=== PATIENT | male | born 1960 | race Caucasian/White ===

== ENCOUNTER 2016-07-11 15:16 | Inpatient (IN) | payer OTHER ==
[~2016-07-11] VITALS: Ht 188 cm; Wt 101.0 kg
[2016-07-11] MEDS ORDERED: ASPIRIN 81 MG TAB PO STA (15:36)
[2016-07-11] MEDS ORDERED: NITROGLYCERIN 2% 1 GM OINT PKT TD STA (15:36)
[2016-07-11 15:58] LABS: ADD SCAN DIFF NO
[2016-07-11 15:59] LABS: BASOPHILS % 0.3 % (0.0-2.0); EOSINOPHILS # 0.1 10^3/ul (0.0-0.5); HEMOGLOBIN 14.9 g/dl (14.0-18.0); LYMPHOCYTES # 2.6 10^3/ul (0.8-2.9); LYMPHOCYTES % 26.5 % (15.0-51.0); MEAN CORPUSCULAR HEMOGLOBIN 29.9 pg (29.0-33.0); MEAN CORPUSCULAR HGB CONC 34.7 g/dl (32.0-37.0); MEAN CORPUSCULAR VOLUME 86.2 fl (82.0-101.0); MEAN PLATELET VOLUME 10.2 fl (7.4-10.4); MONOCYTE # 0.5 10^3/ul (0.3-0.9); MONOCYTES % 5.3 % (0.0-11.0); NEUTROPHIL # 6.6 10^3/ul (1.6-7.5); NEUTROPHILS % 66.6 % (39.0-77.0); PLATELET COUNT 209 10^3/UL (140-415); RED BLOOD COUNT 4.99 10^6/ul (4.70-6.10); RED CELL DISTRIBUTION WIDTH 13.2 % (11.5-14.5)
[2016-07-11] MEDS ORDERED: NITROGLYCERIN (SL) 0.4 MG TAB SL PRN (16:00)
--- NOTE | 2016-07-11 16:00 | RADRPT ---
PROCEDURE: XR Chest. CLINICAL INDICATION: chest pain TECHNIQUE: Single frontal view of the chest was obtained COMPARISON: None FINDINGS: The heart and mediastinum are within normal limits. There is an azygos lobe fissure. There is mild right upper lobe scarring. The lungs are otherwise clear. There is no pleural effusion or pneumothorax. RPTAT: AA IMPRESSION: No acute disease. Mild linear scarring in the right upper lobe. .Jair Moreira MD, MD Date Time Electronically viewed and signed by .Jair Moreira MD, on 07/11/2016 16:00 .S/
[2016-07-11 16:15] LABS: CHLORIDE 109 mmol/L (97-110); POTASSIUM 4.4 mmol/L (3.5-5.1); SODIUM 144 mmol/L (135-144)
[2016-07-11 16:17] LABS: INR 0.95; PROTIME 12.7 Sec (12.2-14.2)
[2016-07-11 16:18] LABS: ANION GAP 12 (8-16); BLOOD UREA NITROGEN 13 mg/dl (7-20); CARBON DIOXIDE 27 mmol/L (21-31); CREATININE 0.75 mg/dl (0.61-1.24); GLUCOSE 101 mg/dl (70-220); PARTIAL THROMBOPLASTIN TIME 27.3 Sec (25.0-35.0)
[2016-07-11 16:19] LABS: CALCIUM 9.5 mg/dl (8.4-10.2)
[2016-07-11 16:33] LABS: TROPONIN-I < 0.012 ng/ml (0.00-0.12)
[2016-07-11] MEDS ORDERED: ONDANSETRON 4 MG INJ IV PRN ×2 (18:00→19:30)
[2016-07-11] MEDS ORDERED: ACETAMINOPHEN 325 MG TAB PO PRN ×2 (18:00→19:30)
--- NOTE | 2016-07-11 19:05 | ERA ---
ER Documentation Chief Complaint Date/Time DATE: 07/11/16 TIME: 19:03 Chief Complaint CHEST PAIN STARTED LAST WEEK, TODAY INCREASINGLY WORSE RADIATES TO LEFT ARM HPI Patient is a 48-year-old male with osteoarthritis who presents with left arm and chest pain. The patient says that he had left arm pain for the past 3 weeks that has been worsening. He became concerned because he started with numbness the left arm and chest pain yesterday. The pain is been constant. He tried naproxen and gabapentin were prescribed by his doctor but these have not helped. Upon review of old medical records this is the patient's first visit to the emergency department. He says that his primary doctor is Dr. Marroquin. ROS All systems reviewed and are negative except as per history of present illness. Allergies Allergies: Coded Allergies: No Known Allergy (Unverified , 07/11/16) PMhx/Soc History of Surgery: No Anesthesia Reaction: No Hx Neurological Disorder: No Hx Respiratory Disorders: No Hx Cardiac Disorders: Yes (HYPERLIPIDS) Hx Psychiatric Problems: No Hx Miscellaneous Medical Probl: Yes (BPH, OA) Hx Alcohol Use: No Hx Substance Use: No Hx Tobacco Use: Yes Smoking Status: Former smoker FmHx Family History: No coronary disease Physical Exam Vitals Vital Signs Date Time Temp Pulse Resp B/P Pulse Ox O2 Delivery O2 Flow Rate FiO2 07/11/16 17:20 73 12 138/98 96 Room Air 07/11/16 15:23 98.3 82 17 164/95 95 Physical Exam Const: No acute distress Head: Atraumatic Eyes: Normal Conjunctiva ENT: Normal External Ears, Nose and Mouth. Neck: Full range of motion..~ No meningismus. Resp: Clear to auscultation bilaterally Cardio: Regular rate and rhythm, no murmurs Abd: Soft, non tender, non distended. Normal bowel sounds Skin: No petechiae or rashes Back: No midline or flank tenderness Ext: No cyanosis, or edema Neur: Awake and alert Psych: Normal Mood and Affect Result Diagram: 07/11/16 1550 07/11/16 1550 Results 24 hrs Laboratory Tests Test 07/11/16 15:50 White Blood Count 10.010^3/ul Red Blood Count 4.9910^6/ul Hemoglobin 14.9g/dl Hematocrit 43.0% Mean Corpuscular Volume 86.2fl Mean Corpuscular Hemoglobin 29.9pg Mean Corpuscular Hemoglobin Concent 34.7g/dl Red Cell Distribution Width 13.2% Platelet Count 27823^3/UL Mean Platelet Volume 10.2fl Neutrophils % 66.6% Lymphocytes % 26.5% Monocytes % 5.3% Eosinophils % 1.0% Basophils % 0.3% Nucleated Red Blood Cells % 0.0/100WBC Neutrophils # 6.610^3/ul Lymphocytes # 2.610^3/ul Monocytes # 0.510^3/ul Eosinophils # 0.110^3/ul Basophils # 0.010^3/ul Nucleated Red Blood Cells # 0.010^3/ul Prothrombin Time 12.7Sec Prothrombin Time Ratio 1.0 INR International Normalized Ratio 0.95 Activated Partial Thromboplast Time 27.3Sec Sodium Level 144mmol/L Potassium Level 4.4mmol/L Chloride Level 109mmol/L Carbon Dioxide Level 27mmol/L Anion Gap 12 Blood Urea Nitrogen 13mg/dl Creatinine 0.75mg/dl Glucose Level 101mg/dl Calcium Level 9.5mg/dl Troponin I < 0.012ng/ml Current Medications Medications (Trade) Dose Ordered Sig/Radha Route PRN Reason Start Time Stop Time Status Last Admin Dose Admin Aspirin (Aspirin) 162 mg ONCE STAT PO 07/11/16 15:36 07/11/16 15:37 DC 07/11/16 15:48 Nitroglycerin (Nitroglycerin 2% Oint) 1 inch ONCE STAT TD 07/11/16 15:36 07/11/16 15:37 DC 07/11/16 15:49 Nitroglycerin (Nitroglycerin (Sl Tab) 0.4 Mg) 1 tab Q5M UP TO 3 DOSES PRN SL CHEST PAIN 07/11/16 16:00 07/11/16 15:49 Ondansetron HCl (Zofran Inj) 4 mg ER BRIDGE PRN IV NAUSEA AND/OR VOMITING 07/11/16 18:00 07/12/16 17:59 Acetaminophen (Tylenol Tab) 650 mg ER BRIDGE PRN PO MILD PAIN/FEVER 07/11/16 18:00 07/12/16 17:59 Procedures/MDM EKG #1 read by me: Rate/Rhythm: Right bundle branch block with a normal rate Intervals: Normal Impression: Right bundle branch block EKG #2 read by me: Rate/Rhythm: Right bundle branch block with a normal rate Intervals: Normal Impression: Right bundle branch block PROCEDURE: XR Chest. CLINICAL INDICATION: chest pain TECHNIQUE: Single frontal view of the chest was obtained COMPARISON: None FINDINGS: The heart and mediastinum are within normal limits. There is an azygos lobe fissure. There is mild right upper lobe scarring. The lungs are otherwise clear. There is no pleural effusion or pneumothorax. RPTAT: AA IMPRESSION: No acute disease. Mild linear scarring in the right upper lobe. .Jair Moreira MD, MD Date Time Electronically viewed and signed by .Jair Moreira MD, MD on 07/11/2016 16: 00 Patient is a 56-year-old male with arthritis who presents with chest pain and arm numbness. The patient will be admitted to the care of Dr. Diop from the panel team to rule out acute coronary syndrome. I doubt pneumonia, pneumothorax , pulmonary embolism, or aortic dissection. The patient will be given aspirin nitroglycerin for potential acute coronary syndrome. Departure Diagnosis: Primary Impression: Chest pain Qualified Code: R07.9 - Chest pain, unspecified type Condition: NAVA Estrada MD July 11, 2016 19:05
[2016-07-11 19:19] VITALS: TEMP 98.3
[2016-07-11] MEDS ORDERED: BISACODYL (EC) 5 MG TAB PO PRN (19:30)
[2016-07-11] MEDS ORDERED: DOCUSATE SODIUM 100 MG CAP PO PRN (19:30)
[2016-07-11] MEDS ORDERED: morphine 2 MG INJ IV PRN (19:30)
[2016-07-11] MEDS ORDERED: NACL 0.9% 3 ML SYG IV SCH (19:30)
--- NOTE | 2016-07-11 19:38 | HP ---
Date/Time of Note Date/Time of Note DATE: 07/11/16 TIME: 19:35 Assessment/Plan VTE Prophylaxis VTE Prophylaxis Intervention: SCD's Lines/Catheters IV Catheter Type (from Nrs): Saline Lock Assessment/Plan Assessment/Plan 56 yo M with 1. Chest pain r/o ACS 2. Prev Heavy tobacco use PLAN: Telemetry admission, trend cardiac enzymes, 2d echo if none recently and possible cardiology consult for stress test. oxygen and nitroglycerin therapy as needed. Daily aspirin if no allergy or bleeding risk. Get lipid profile, magnesium and TSH levels in am. Further evaluation and treatment will be based on clinical course Full discussion with care team done. All questions Answered Please also see orders. HPI/ROS Admit Date/Time Admit Date/Time Hx of Present Illness PRESENTING COMPLAINT: chest pain HISTORY OF PRESENTING COMPLAINT: L arm pain and numbness for 3 weekws now associated with L sided chest pain. Smoker quit 3 years ago. ROS 12 point review if systems was done and pertinent findings are as noted. PMH/Family/Social Past Medical History Medical History: no pertinent history Past Surgical History Past Surgical Hx: no surgical history Family History Significant Family History: no pertinent family hx Social History Alcohol Use: none Smoking Status: Former smoker Drug Use: none Exam/Review of Systems Vital Signs Vitals Vital Signs Date Time Temp Pulse Resp B/P Pulse Ox O2 Delivery O2 Flow Rate FiO2 07/11/16 19:19 98.3 71 12 130/95 96 Room Air Exam Exam GENERAL: Patient is alert, oriented x 3, in no apparent distress; does not appear acutely or chronically ill. Patient is able to sit up unassisted.Patient makes good eye contact, is conversant, interactive, coherent. Patient appears calm and comfortable and is able to follow commands. HEENT: Oropharynx is clear. There is no carotid bruit, no masses. Patient's pupils are equal, round and reactive to light bilaterally. Extraocular motions are intact. There is no scleral icterus. There is no facial asymmetry. NECK: Supple. LUNGS: Clear to auscultation bilaterally with good air entry. No Wheezes or crackles. HEART: S1, S2. No murmur, gallops or rubs. Regular rate and rhythm. ABDOMEN: Soft, nontender. Normoactive bowel sounds. There are no stigmata of chronic liver disease. BACK: no costovertebral angle tenderness. GENITOURINARY: Deferred. EXTREMITIES: No edema. There is no cyanosis, clubbing. There are 2+ pulses bilaterally distally. NEUROLOGIC: The patient has no lateralizing signs. Cranial nerves II-XII are intact. SKIN: Otherwise, unremarkable. Labs Result Diagram: 07/11/16 1550 07/11/16 1550 Medications Medications Current Medications Ondansetron HCl (Zofran Inj) 4 mg Q6H PRN IV NAUSEA AND/OR VOMITING; Start at 19:30 Acetaminophen (Tylenol Tab) 650 mg Q6H PRN PO PAIN LEVEL 1-3 OR FEVER; Start at 19:30 Morphine Sulfate (morphine) 2 mg Q4H PRN IV PAIN LEVEL 7-10; Start 07/11/16 at 19:30 Docusate Sodium (Colace) 100 mg Q12H PRN PO CONSTIPATION; Start 07/11/16 at 19: 30 Bisacodyl (Dulcolax) 5 mg DAILY PRN PO CONSTIPATION; Start 07/11/16 at 19:30 Famotidine (Pepcid) 20 mg Q12 PO ; Start 07/11/16 at 21:00 Procedures Procedures Laboratory Tests Test 07/11/16 15:50 White Blood Count 10.010^3/ul Red Blood Count 4.9910^6/ul Hemoglobin 14.9g/dl Hematocrit 43.0% Mean Corpuscular Volume 86.2fl Mean Corpuscular Hemoglobin 29.9pg Mean Corpuscular Hemoglobin Concent 34.7g/dl Red Cell Distribution Width 13.2% Platelet Count 33563^3/UL Mean Platelet Volume 10.2fl Neutrophils % 66.6% Lymphocytes % 26.5% Monocytes % 5.3% Eosinophils % 1.0% Basophils % 0.3% Nucleated Red Blood Cells % 0.0/100WBC Neutrophils # 6.610^3/ul Lymphocytes # 2.610^3/ul Monocytes # 0.510^3/ul Eosinophils # 0.110^3/ul Basophils # 0.010^3/ul Nucleated Red Blood Cells # 0.010^3/ul Prothrombin Time 12.7Sec Prothrombin Time Ratio 1.0 INR International Normalized Ratio 0.95 Activated Partial Thromboplast Time 27.3Sec Sodium Level 144mmol/L Potassium Level 4.4mmol/L Chloride Level 109mmol/L Carbon Dioxide Level 27mmol/L Anion Gap 12 Blood Urea Nitrogen 13mg/dl Creatinine 0.75mg/dl Glucose Level 101mg/dl Calcium Level 9.5mg/dl Troponin I < 0.012ng/ml Current Medications Medications (Trade) Dose Ordered Sig/Radha Route PRN Reason Start Time Stop Time Status Last Admin Dose Admin Aspirin (Aspirin) 162 mg ONCE STAT PO 07/11/16 15:36 07/11/16 15:37 DC 07/11/16 15:48 162 MG Nitroglycerin (Nitroglycerin 2% Oint) 1 inch ONCE STAT TD 07/11/16 15:36 07/11/16 15:37 DC 07/11/16 15:49 1 INCH Nitroglycerin (Nitroglycerin (Sl Tab) 0.4 Mg) 1 tab Q5M UP TO 3 DOSES PRN SL CHEST PAIN 07/11/16 16:00 07/11/16 15:49 1 TAB Ondansetron HCl (Zofran Inj) 4 mg ER BRIDGE PRN IV NAUSEA AND/OR VOMITING 07/11/16 18:00 07/11/16 19:32 DC Acetaminophen (Tylenol Tab) 650 mg ER BRIDGE PRN PO MILD PAIN/FEVER 07/11/16 18:00 07/11/16 19:32 DC IV Flush (NS 3 ml) 3 ml PER PROTOCOL IV 07/11/16 19:30 Ondansetron HCl (Zofran Inj) 4 mg Q6H PRN IV NAUSEA AND/OR VOMITING 07/11/16 19:30 Acetaminophen (Tylenol Tab) 650 mg Q6H PRN PO PAIN LEVEL 1-3 OR FEVER 07/11/16 19:30 Morphine Sulfate (morphine) 2 mg Q4H PRN IV PAIN LEVEL 7-10 07/11/16 19:30 Docusate Sodium (Colace) 100 mg Q12H PRN PO CONSTIPATION 07/11/16 19:30 Bisacodyl (Dulcolax) 5 mg DAILY PRN PO CONSTIPATION 07/11/16 19:30 Famotidine (Pepcid) 20 mg Q12 PO 07/11/16 21:00 PROCEDURE: XR Chest. CLINICAL INDICATION: chest pain TECHNIQUE: Single frontal view of the chest was obtained COMPARISON: None FINDINGS: The heart and mediastinum are within normal limits. There is an azygos lobe fissure. There is mild right upper lobe scarring. The lungs are otherwise clear. There is no pleural effusion or pneumothorax. RPTAT: AA IMPRESSION: No acute disease. Mild linear scarring in the right upper lobe. .Jair Moreira MD, MD Date Time Electronically viewed and signed by .Jair Moreira MD, MD on 07/11/2016 16: 00 .S/ CC: NAVA GREWAL MD I reviewed EKG Rate: Within normal limits Rhythm: sinus Note: No ST elevation or depressions noted concerning for acute ischemic event. TAMIKO WILLIS July 11, 2016 19:38
[2016-07-11 20:00] VITALS: Ht 188 cm; Wt 101.0 kg
[2016-07-11 20:17] VITALS: BP 128/76; RESP 18
[2016-07-11 20:32] VITALS: PULSE 72
[2016-07-11] MEDS ORDERED: GLUC100015 PO ×2 (21:06)
[2016-07-11] MEDS ORDERED: ATOR10TA65 PO (21:06)
[2016-07-11] MEDS ORDERED: NAPR-688 PO ×2 (21:06)
[2016-07-11] MEDS ORDERED: TAMS0.4C2 PO (21:06)
[2016-07-11] MEDS: FAMOTIDINE 20 MG TAB PO SCH (21:38)
[2016-07-11 22:39] LABS: CREATINE KINASE 96 IU/L (23-200)
[2016-07-11 22:55] LABS: CK-MB 0.75 ng/ml (0.0-2.4); TROPONIN-I < 0.012 ng/ml (0.00-0.12)
[2016-07-11 23:43] VITALS: BP 121/68; RESP 18
[2016-07-12] VITALS (7 sets, daily range): BP systolic 113–145; BP diastolic 68–90; PULSE 60–67; RESP 18–20
[2016-07-12 04:08] LABS: ADD SCAN DIFF NO
[2016-07-12 04:36] LABS: BASOPHILS % 0.4 % (0.0-2.0); EOSINOPHILS # 0.1 10^3/ul (0.0-0.5); HEMATOCRIT 42.9 % (42.0-52.0); HEMOGLOBIN 14.7 g/dl (14.0-18.0); LYMPHOCYTES # 3.1 10^3/ul (0.8-2.9); LYMPHOCYTES % 29.3 % (15.0-51.0); MEAN CORPUSCULAR HEMOGLOBIN 29.8 pg (29.0-33.0); MEAN CORPUSCULAR HGB CONC 34.3 g/dl (32.0-37.0); MEAN CORPUSCULAR VOLUME 86.8 fl (82.0-101.0); MEAN PLATELET VOLUME 11.2 fl (7.4-10.4); MONOCYTE # 0.6 10^3/ul (0.3-0.9); MONOCYTES % 5.4 % (0.0-11.0); NEUTROPHIL # 6.8 10^3/ul (1.6-7.5); NEUTROPHILS % 63.7 % (39.0-77.0); PLATELET COUNT 216 10^3/UL (140-415); RED BLOOD COUNT 4.94 10^6/ul (4.70-6.10); RED CELL DISTRIBUTION WIDTH 13.2 % (11.5-14.5); WHITE BLOOD COUNT 10.7 10^3/ul (4.8-10.8)
[2016-07-12 04:40] LABS: ALBUMIN 4.8 g/dl (3.3-4.9); ALBUMIN/GLOBULIN RATIO 1.54; BILIRUBIN,INDIRECT 0.2 mg/dl (0-1.1); BILIRUBIN,TOTAL 0.2 mg/dl (0.2-1.3); CALCIUM 9.8 mg/dl (8.4-10.2); CREATININE 0.71 mg/dl (0.61-1.24); MAGNESIUM 2.2 mg/dl (1.7-2.5); POTASSIUM 4.6 mmol/L (3.5-5.1); TOTAL PROTEIN 7.9 g/dl (6.1-8.1)
[2016-07-12 04:43] LABS: CREATINE KINASE 93 IU/L (23-200)
[2016-07-12 04:49] LABS: CK-MB 0.69 ng/ml (0.0-2.4)
[2016-07-12 04:57] LABS: TROPONIN-I < 0.012 ng/ml (0.00-0.12)
[2016-07-12 05:10] LABS: THYROID STIMULATING HORMONE 1.8 MIU/L (0.465-4.680)
[2016-07-12] MEDS: FAMOTIDINE 20 MG TAB PO SCH (08:10)
--- NOTE | 2016-07-12 08:59 | CONS ---
Date/Time of Note Date/Time of Note DATE: 07/12/16 TIME: 08:53 Assessment/Plan Assessment/Plan Chief Complaint/Hosp Course Left arm and chest wall numbness: Pt denies chest pain. The numbness would not be cardiac related.?nerve impingement. His trops are negative. EKG is just RBBB. He is otherwise active and without symptoms. Though he has risk factors for CAD, he does not have an indication for stress testing at this time, at least not inpatient. The pt would like to go home and I think it is appropriate. He can be followed up as an outpt. HL Former smoker OA -from my perspective, ok for d/c with outpt f/u with PMD +/- cardiology -continue home statin Problems: Consultation Date/Type/Reason Admit Date/Time Date of Consultation: July 12, 2016 Type of Consultation: Cardiology Reason for Consultation Chest pain Referring Provider: TAMIKO WILLIS Hx of Present Illness 56 yo M with a h/o HL, prior tobacco use (quit 3 yrs ago), osteoarthritis, who presented with numbness of his left arm and chest. The pt notes that he has had OA for 3-4 years and has left shoulder pain frequently for which he takes naproxen. Over the past few days he has also been having numbness of his left arm as well as the mid-axillary region of his left chest wall and a pinpoint area around his left nipple. No chest pain or pressure. He walks at a brisk pace 1 hour daily and denies exertional chest pain or SOB. No prior KS. No family history of CAD/KS. He would like to go home. per HPI Past Medical History Medical History: no pertinent history Past Surgical History Past Surgical Hx: no surgical history Family History Significant Family History: heart disease Social History Alcohol Use: none Smoking Status: Former smoker Drug Use: none Exam/Review of Systems Vital Signs Vitals Vital Signs Date Time Temp Pulse Resp B/P Pulse Ox O2 Delivery O2 Flow Rate FiO2 07/12/16 07:44 97.6 65 20 116/68 93 07/11/16 19:19 Room Air Intake and Output 07/11/16 07/11/16 07/12/16 15:00 23:00 07:00 Intake Total 250 ml Balance 250 ml Exam Constitutional: alert, oriented Psych: no complaints Head: atraumatic, normocephalic Eyes: nl conjunctiva ENMT: nl external ears & nose Neck: supple, No jvd Respiratory: clear to auscultation, No crackles/rales Cardiovascular: regular rate and rhythm, No edema, No systolic murmur Gastrointestinal: non-tender, soft, No distended Musculoskeletal: nl extremities to inspection Extremities: normal pulses Neurological: nl mental status, nl speech Skin: No rash or lesions Results EKG: sinus, RBBB Result Diagram: 07/12/1634207/12/16 0343 Results 24 hrs Laboratory Tests Test 07/11/16 15:50 07/11/16 21:54 07/12/16 03:43 White Blood Count 10.0 10.7 Red Blood Count 4.99 4.94 Hemoglobin 14.9 14.7 Hematocrit 43.0 42.9 Mean Corpuscular Volume 86.2 86.8 Mean Corpuscular Hemoglobin 29.9 29.8 Mean Corpuscular Hemoglobin Concent 34.7 34.3 Red Cell Distribution Width 13.2 13.2 Platelet Count 209 216 Mean Platelet Volume 10.2 11.2 H Neutrophils % 66.6 63.7 Lymphocytes % 26.5 29.3 Monocytes % 5.3 5.4 Eosinophils % 1.0 1.0 Basophils % 0.3 0.4 Nucleated Red Blood Cells % 0.0 0.0 Neutrophils # 6.6 6.8 Lymphocytes # 2.6 3.1 H Monocytes # 0.5 0.6 Eosinophils # 0.1 0.1 Basophils # 0.0 0.0 Nucleated Red Blood Cells # 0.0 0.0 Prothrombin Time 12.7 Prothrombin Time Ratio 1.0 INR International Normalized Ratio 0.95 Activated Partial Thromboplast Time 27.3 Sodium Level 144 141 Potassium Level 4.4 4.6 Chloride Level 109 108 Carbon Dioxide Level 27 25 Anion Gap 12 13 Blood Urea Nitrogen 13 15 Creatinine 0.75 0.71 Glucose Level 101 100 Calcium Level 9.5 9.8 Troponin I < 0.012 < 0.012 < 0.012 Creatine Kinase 96 93 Creatine Kinase Index 0.8 0.7 Creatinine Kinase MB (Mass) 0.75 0.69 Hemoglobin A1c 5.5 Magnesium Level 2.2 Total Bilirubin 0.2 Direct Bilirubin 0.00 Indirect Bilirubin 0.2 Aspartate Amino Transf (AST/SGOT) 26 Alanine Aminotransferase (ALT/SGPT) 54 Alkaline Phosphatase 71 Total Protein 7.9 Albumin 4.8 Globulin 3.10 Albumin/Globulin Ratio 1.54 Triglycerides Level 186 H Cholesterol Level 161 LDL Cholesterol, Calculated 84 HDL Cholesterol 40 Cholesterol/HDL Ratio 4.0 Thyroid Stimulating Hormone (TSH) 1.800 Medications Medications Current Medications Ondansetron HCl (Zofran Inj) 4 mg Q6H PRN IV NAUSEA AND/OR VOMITING; Start at 19:30 Acetaminophen (Tylenol Tab) 650 mg Q6H PRN PO PAIN LEVEL 1-3 OR FEVER; Start at 19:30 Morphine Sulfate (morphine) 2 mg Q4H PRN IV PAIN LEVEL 7-10; Start 07/11/16 at 19:30 Docusate Sodium (Colace) 100 mg Q12H PRN PO CONSTIPATION; Start 07/11/16 at 19: 30 Bisacodyl (Dulcolax) 5 mg DAILY PRN PO CONSTIPATION; Start 07/11/16 at 19:30 Famotidine (Pepcid) 20 mg Q12 PO Last administered on 07/12/16t 08:10; Admin Dose 20 MG; Start 07/11/16 at 21:00 Atorvastatin Calcium (Lipitor) 10 mg QHS PO ; Start 07/12/16 at 21:00 Tamsulosin HCl (Flomax) 0.4 mg HS PO ; Start 07/12/16 at 21:00 EVIE MENDOZA July 12, 2016 08:59
[2016-07-12] MEDS ORDERED: ESOM20CA PO (11:41)
--- NOTE | 2016-07-12 13:19 | PDOCDIS ---
Discharge Instructions DIAGNOSIS Discharge Diagnosis: chest pain CONDITION Patient Condition: Stable HOME CARE INSTRUCTIONS: Diet Instructions: Low Fat /Cholesterol ACTIVITY: Activity Restrictions: Slowly Increase Activity Rest between Activity FOLLOW UP/APPOINTMENTS Appointments Followup with your primary doctor within the next 1-2 weeks. If you don't have one please let someone know, we can give you resources that may help you pick one. You may call Dr Clovis Conway's office. he's accepting new patients Name, Degree: Clovis Conway MD Specialty: Internal Medicine Comments: Office Address: [address] [place] [address] Office Office You may also call your insurance company to assign one to you. Review your medication list with your nurse before leaving and if you need new prescriptions please let your nurse know. I may have made changes to your home medications or given you new prescriptions , please let your primary doctor know as well. Stay compliant with your medications and report any side effects to your PCP or pharmacist. Return to the ER if you have any concerns and cannot reach your doctors or call your insurance company, they usually have a nurse that can help you. TAMIKO WILLIS July 12, 2016 13:19
--- NOTE | 2016-07-12 15:25 | RADRPT ---
Echocardiogram Report Patient Name: CUONG SMITH Gender: Male Date: 1960 Study Date: 12-Jul-2016 Kitchen Work Supervisor: Faye Garcia [facility] Location: 5561 Ref. Physician: JEFFREY WAYNE Quality: Good Procedures: Transthoracic echocardiogram with complete 2D, M-Mode, and doppler examination. Indications: Chest Pain. 2D/M Mode Doppler Measurement Value Normal Ranges Measurement Value Normal Ranges LVIDd 2D 5.5 3.5 - 5.6 cm AV Peak Star 1.1 m/sec LVIDs 2D 2.6 2.1 - 4.1 cm AV Peak PG 5.0 mmHg FS 2D 52.6 % LVOT Peak Star 1.0 m/sec LVPWd 2D 0.9 0.6 - 1.1 cm LVOT Peak PG 4.0 mmHg IVSd 2D 0.9 0.6 - 1.1 cm MV E Peak Star 0.7 m/sec IVS/LVPW 2D 1.0 MV A Peak Star 0.7 m/sec AoR Diam 2D 3.1 2.0 - 3.7 cm MV E/A 1.0 LA/Ao 2D 1 0 - 1 MV Decel Time 144 msec EDV 2D 169.0 cm3 MV E/A 1.0 ESV 2D 18.0 cm3 LA Dimen 2D 3.4 2.3 - 4.0 cm Findings Left Ventricle: Normal left ventricular systolic function. Normal left ventricular cavity size. Normal left ventricular wall thickness. Ejection fraction is visually estimated at 55 %. Tissue Doppler/Mitral Doppler indices are within normal limits. Right Ventricle: Normal right ventricular size. Normal right ventricular systolic function. Left Atrium: The left atrium is normal in size. Right Atrium: The right atrium is normal in size. Mitral Valve: Normal appearance and function of the mitral valve with trace physiologic regurgitation. Aortic Valve: No significant aortic stenosis or insufficiency. Aortic cusps appear mildly calcified. Tricuspid Valve: Normal appearance of the tricuspid valve. Unable to obtain RVSP due to minimal presence of tricuspid regurgitation. Pulmonic Valve: Normal pulmonic valve appearance. Pericardium: Normal pericardium with no significant pericardial effusion. Aorta: Normal aortic root. IVC: Normal size and normal respiratory collapse consistent with normal right atrial pressure. Conclusions Normal left ventricular systolic function. Normal left ventricular cavity size. Normal left ventricular wall thickness. Ejection fraction is visually estimated at 55 %. Tissue Doppler/Mitral Doppler indices are within normal limits. No significant valvular stenosis or regurgitation seen. Unable to obtain RVSP due to minimal presence of tricuspid regurgitation. RA pressure is 3 mmHg. Electronically Signed By: Arnoldo Reinoso 12-Jul-2016 15:24:31 0700 Patient Name: CUONG SMITH Study Date: 12-Jul-2016 [id number]
[2016-07-12] MEDS ORDERED: TAMSULOSIN (SR) 0.4 MG CAP PO SCH (21:00)
[2016-07-12] MEDS ORDERED: ATORVASTATIN 10 MG TAB PO SCH (21:00)
--- NOTE | 2016-07-13 12:40 | DS ---
Date/Time of Note Date/Time of Note DATE: 07/13/16 TIME: 12:39 Discharge Summary Admission/Discharge Info Admit Date/Time July 11, 2016 at 17:46 Discharge Date/Time July 12, 2016 at 14:08 Final Diagnosis * Left arm numbness with left-sided chest pain: Improved * ACS ruled out * Previous history of heavy tobacco use, patient has quit for 3 years * Mild dyslipidemia . Patient Condition: Stable Consults Cardiology: Arleth . Hx of Present Illness PRESENTING COMPLAINT: chest pain HISTORY OF PRESENTING COMPLAINT: L arm pain and numbness for 3 weekws now associated with L sided chest pain. Smoker quit 3 years ago. Hospital Course 56-year-old male who was admitted yesterday for left arm numbness with associated left-sided chest pain to rule out an acute coronary syndrome because of his history of heavy tobacco use previously. He has ruled out with 3 negative cardiac enzymes, he is being seen by cardiology and at this time has had no further chest pain. Cardiology has cleared the patient for discharge and recommended recommends outpatient follow-up with his own primary care physician plus or minus reconciler. I did offer the patient a CAT scan of his neck or his shoulder to ensure there was no nerve impingement causing his left arm and chest wall numbness he however declined saying he will follow up with his own primary care physician. Screening profile revealed a mild dyslipidemia, and cardiology recommends patient continue on his home statin. Patient is encouraged to continue to stay away from tobacco use. He has verbalized understanding. . Home Meds Active Scripts Esomeprazole Mag Trihydrate (Nexium) 20 Mg Capsule., 20 MG PO DAILY, #30 CAP Prov:TAMIKO WILLIS 07/12/16 Reported Medications Glucosamine Sulfate 2KCL (GLUCOSAMINE) 1,000 Mg Tablet, 1500 MG PO QHS, TAB 07/11/16 Glucosamine Sulfate 2KCL (GLUCOSAMINE) 1,000 Mg Tablet, 1500 MG PO QAM, TAB 07/11/16 Naproxen* (Naproxen*) 500 Mg Tablet, 1000 MG PO QAM, TAB 07/11/16 Naproxen* (Naproxen*) 500 Mg Tablet, 500 MG PO QHS, TAB 07/11/16 Atorvastatin (Atorvastatin) 10 Mg Tablet, 10 MG PO QHS, #30 TAB 07/11/16 Tamsulosin Hcl* (Tamsulosin Hcl*) 0.4 Mg Cap.er.24h, 0.4 MG PO HS, CAP 07/11/16 Primary Care Provider Demond Olson Time spent on discharge: > 30 minutes TAMIKO WILLIS Jul 13, 2016 12:40
== END 2016-07-12 14:08 | disposition home or self-care (01) | DRG 313 ==
LOC: E/R 15:16 → MS4 17:46
PROVIDERS: ADMIT Family Medicine; ATTEND Family Medicine
DX: R07.9 Chest pain, unspecified (principal); E78.5 Hyperlipidemia, unspecified; R20.0 Anesthesia of skin; Z87.891 Personal history of nicotine dependence
CPT/HCPCS: 36415; 71010; 80048; 80053; 80061; 82550; 82553; 83036; 83735; 84443; 84484; 85025; 85610; 85730; 93005; 93306